=== PATIENT | female | born 1985 | race Caucasian/White ===

== ENCOUNTER 2021-03-24 14:52 | Emergency (ER) | payer MEDICAID, SELFPAY ==
[2021-03-24 15:09] VITALS: BP 143/86; PULSE 110; RESP 16; TEMP 37; O2SAT 99; BMI 35.2
--- NOTE | 2021-03-24 17:11 | ED.ANIMALBIT ---
HPI - Animal Bite General Chief Complaint: Animal Bite Stated Complaint: dog bite Time Seen by Provider: 03/24/21 16:53 Source: patient Mode of arrival: ambulatory Limitations: no limitations History of Present Illness HPI narrative: 35-year-old female presents for a dog bite to her left knee and right lateral upper thigh. Patient was arguing with her son, her son got agitated and kicked the cage that the dog was lying in. The dog was alarmed, and came out and was going to bite her son, patient got in between the dog and her son. States that her dog has never bitten anyone else, and that the dog was scared and startled from the cage being kicked. Dog is up-to-date on rabies, got a rabies shot last year, and is due for rabies shot at the end of this month. Patient is not up-to-date on her tetanus. MD complaint: animal bite Onset (ago): hour(s) (1) Animal: dog Description of animal: household pet Mechanism: bite Location - Extremities: left: knee and right: thigh Pain description: dull Severity scale (1-10): 3 Context: provoked Associated symptoms: none Related Data Patient tetanus UTD: No Previous Rx's Medication Instructions Recorded amoxicillin 875 mg-potassium 1 tab PO BID 10 Days #20 tab 03/24/21 clavulanate 125 mg tablet (Augmentin) Allergies Allergy/AdvReac Type Severity Reaction Status Date / Time aspirin [ASPIRIN] Allergy Intermediate ITCHY Unverified 04/26/20 19:21 Review of Systems Review of Systems: Constitutional : No Weight loss, No Fever, No Chills, No Night Sweats,No Fatigue, No Malaise ENT/Mouth : No Hearing loss, No Ear Pain, No Nasal Congestion, NoSinus Pain, No Hoarseness, No sore throat, No Rhinorrhea, NoSwallowing Difficulty Eyes: No Eye Pain, No Swelling, No Redness, No Foreign Body, NoDischarge, No Vision Changes Cardiovascular : No Chest Pain, No SOB, No Dyspnea on Exertion, NoOrthopnea, No Edema, No Palpitations Respiratory : No Cough, No Sputum, No Wheezing, No Smoke Exposure, No Dyspnea Gastrointestinal : No Nausea, No Vomiting, No Diarrhea, NoConstipation, No abdominal Pain, No Hematochezia, No Melena Genitourinary : no irregular bleeding, No Dysuria, No UrinaryFrequency, No Hematuria, No Urinary Incontinence, No Urgency, No FlankPain, No Urinary Flow Changes, No Hesitancy Musculoskeletal : No joint pain, No Myalgias, No Joint Swelling Skin :lacertion to left knee, puncture wound right upper thigh Neuro : No Weakness, No Numbness, No Paresthesias, No Loss ofConsciousness, No Dizziness, No Headache Psych : mild anxiety, tremors in hands, , No Depression, No SI/HI/AH/VH, No Social Issues, Endocrine : No Polyuria, No Polydipsia, No Temperature Intolerance [facility] Past Medical History Medical History (Updated 03/24/21 @ 18:04 by TRUPTI Ambriz) No acute medical problems Surgical History No history of previous surgery Social History Social History Advance Directives: No Advance Directives Information Provided: No Patient : No Physical Exam Vital Signs: Vital Signs: Last Vital Signs Temp 98.6 F 03/24/21 15:09 Pulse 110 H 03/24/21 15:09 Resp 16 03/24/21 15:09 BP 143/86 H 03/24/21 15:09 Pulse Ox 99 03/24/21 15:09 Body Mass Index 35.2 Const: General: cooperative, no acute distress, well developed, alert and awake Nutritional Appearance: well nourished Orientation/consciousness: patient oriented x3 Limitations: no limitations Eyes: Conjunctivae: conjunctivae normal Pupils: Equal, round and reactive pupils present EOM: EOMs intact bilaterally Resp: Effort & Inspection: normal respiratory effort and able to speak in complete sentences Auscultation: clear to auscultation bilaterally, no crackles, no rales, no rhonchi and no wheezes Cardio: Rate: regular rate Rhythm: regular rhythm Heart sounds: S1 normal heart sound present and S2 normal heart sound present Skin: Other: For % there are linear full-thickness laceration to left anterior knee, right puncture wound upper thigh Trauma: laceration left anterior knee and puncture (upper right thigh) Neuro: General: patient oriented x3, tone normal and moves all extremities Cranial nerves: Yes Equal, round and reactive pupils present Extrem: Left lower extremity: knee Psych: Appearance: grossly normal Affect: normal affect Attitude: cooperative Thought process: Normal thought process present Course Course Course Narrative: 35-year-old female who was bitten by her own dog, dog is up-to-date on rabies vaccination. This was a provoked attack. Patient is not up on her tetanus vaccination, and refuses a tetanus vaccination Laceration left knee irrigated copiously with 500 cc normal saline, 2 loose sutures placed. Wound care instructions and infection return precautions given. Patient placed on Augmentin. Procedures Laceration Laceration 1: Site: lower extremity Side (If applicable): left Size (cm): 4 Description: linear Depth: simple, single layer Local Anesthetic: lidocaine 1% Amount of anesthesia used (mL): 6 Pre-repair: wound explored, irrigated extensively and deep structures intact Skin layer closed with: vicryl Size (cm): 4-0 Number of sutures: 2 Technique: simple, interrupted Discharge Plan Discharge Clinical Impression: Laceration Dog bite Qualifiers: Encounter type: initial encounter Qualified Code(s): W54.0XXA - Bitten by dog, initial encounter Patient Disposition: Home, Self-Care Instructions: Animal Bite (ED), Laceration (ED) Additional Instructions: Please take your antibiotics for the next 10 days. Please return to get the 2 stitches out on April 01. Leave the dressing on until tomorrow, then take it off, washed with soap and water, put a nonstick dressing on, and keep covered. Do this for the next 3 or 4 days. Do not apply antibiotic ointment. If redness swelling or warmth develops, please return to be seen. [place] fadia antibi?ticos georgette los pr?ximos 10 d?as. Regrese para sacar los 2 puntos el 23 de tori. Dejar el ap?sito hasta ma?tiara, luego quitarlo, adriana con agua y jab?n, poner un ap?sito antiadherente y mantener tapado. [place] esto georgette los pr?ximos 3 o 4 d?as. No aplique estela?ento antibi?wse. Si aparece enrojecimiento, hinchaz?n o calor, vuelva a ser visto. Prescriptions: New amoxicillin-pot clavulanate [Augmentin] 875-125 mg tablet 1 tab PO BID 10 Days Qty: 20 RF: 0 Print Language: Bruneian
[2021-03-24] MEDS: Lidocaine HCl 1 % 20 ML VIAL 10 ML INFILTRATI (17:20)
[2021-03-24] MEDS: Amoxicillin/Potassium Clav 875 MG TABLET PO (17:25)
--- NOTE | 2021-03-24 18:46 | PC.NURSE ---
ERICKA LEFT THIGH WOUND CLEANED AND FLUSHED AND SUTURES APPLIED BY TRUPTI TYLER RIGHT THIGH FLUSHED AND CLEANED AND DSD APPLIED.
== END 2021-03-24 18:50 | disposition home or self-care (01) ==
PROVIDERS: Emergency Provider Emergency Medicine
DX: S71.112A Laceration without foreign body, left thigh, initial encounter (principal); S80.272A Other superficial bite of left knee, initial encounter; S70.371A Other superficial bite of right thigh, initial encounter; W54.0XXA Bitten by dog, initial encounter; Y93.9 Activity, unspecified; Y92.009 Unspecified place in unspecified non-institutional (private) residence as the place of occurrence of the external cause; Y99.9 Unspecified external cause status
CPT/HCPCS: 12002; 90471; 99284

== ENCOUNTER 2021-04-01 17:18 | Emergency (ER) | payer MEDICAID, SELFPAY | END 2021-04-01 18:09 | disposition left against medical advice (07) | PROVIDERS: Emergency Provider Emergency Medicine | DX: Z03.89 Encounter for observation for other suspected diseases and conditions ruled out (principal) ==

== ENCOUNTER 2021-04-02 09:11 | Emergency (ER) | payer MEDICAID, SELFPAY ==
--- NOTE | 2021-04-02 10:16 | ED.WOUNDLAC ---
HPI - Wound/Laceration General Stated Complaint: suture removal Time Seen by Provider: 04/02/21 10:15 History of Present Illness HPI narrative: Patient presents for suture removal from left knee, she has no other complaint no redness no swelling no discharge Related Data Previous Rx's Medication Instructions Recorded amoxicillin 875 mg-potassium 1 tab PO BID 10 Days #20 tab 03/24/21 clavulanate 125 mg tablet (Augmentin) Allergies Allergy/AdvReac Type Severity Reaction Status Date / Time aspirin [ASPIRIN] Allergy Intermediate ITCHY Unverified 04/26/20 19:21 Review of Systems Review of Systems: No fever no chills no joint pain no redness swelling or discharge no red stripe up the leg no numbness weakness or tingling Yes all other systems are reviewed and are negative PMFSH Past Medical History Source: nursing notes reviewed Medical History (Updated 04/02/21 @ 10:21 by TRUPTI Gonzalez) No acute medical problems Surgical History No history of previous surgery Social History Social History Patient : No Physical Exam Vital Signs: General appearance is no acute distress Head is normocephalic atraumatic Neck is supple Respiratory no distress The left knee has [address] over the left knee the knee has full range of motion, there is no surrounding erythema no swelling no discharge and neurovascular intact distal Course Course Course Narrative: Left knee sutures are removed, there is no wound dehiscence no discharge from the wound no signs of infection and patient is discharged Discharge Plan Discharge Clinical Impression: Visit for suture removal Patient Disposition: Home, Self-Care Instructions: Stitches Removal (ED) Prescriptions: No Action amoxicillin-pot clavulanate [Augmentin] 875-125 mg tablet 1 tab PO BID 10 Days Qty: 20 RF: 0
[2021-04-02 10:18] VITALS: BP 140/85; PULSE 94; RESP 16; O2SAT 99; BMI 27.4
== END 2021-04-02 10:51 | disposition home or self-care (01) ==
LOC: HO.ED 10:27
PROVIDERS: Emergency Provider Emergency Medicine
DX: Z48.02 Encounter for removal of sutures (principal); S81.012D Laceration without foreign body, left knee, subsequent encounter; X58.XXXD Exposure to other specified factors, subsequent encounter
CPT/HCPCS: 99283

== ENCOUNTER 2025-06-30 21:14 | Emergency (ER) | payer MEDICAID, SELFPAY ==
[2025-06-30 21:15] VITALS: BP 167/76; PULSE 98; RESP 18; TEMP 36.8; O2SAT 99; BMI 37.3
--- NOTE | 2025-06-30 21:56 | ED_ITS ---
HPI - URI/Sore Throat General Chief Complaint: Upper Respiratory Symptoms Stated Complaint: sob Time Seen by Provider: 06/30/25 21:48 Source: patient Mode of arrival: ambulatory Limitations: no limitations History of Present Illness ED Provider: Dr. Lauryn Jeong HPI Narrative: Patient comes to the emergency room complaining of cough for 1 day. Patient states that she took cold and flu medication but she vomited x1. Patient denies fever chills, denies ear pain or sore throat. Related Data Previous Rx's ?Medication ?Instructions ?Recorded amoxicillin 875 mg-potassium 1 tab PO BID 10 days #20 tabs 03/24/21 clavulanate 125 mg tablet (Augmentin) benzonatate 100 mg capsule 100 mg PO TID PRN cough #14 caps 06/30/25 ondansetron 4 mg disintegrating 4 mg PO Q6H PRN nausea and 06/30/25 tablet vomiting #7 tabs Allergies Allergy/AdvReac Type Severity Reaction Status Date / Time aspirin (ASPIRIN) Allergy Intermediate ITCHY Verified 06/30/25 21:22 Review of Systems Review of Systems: Constitutional : No Weight loss, No Fever, No Chills, No Night Sweats, No Fatigue, No Malaise ENT/Mouth : No Hearing loss, No Ear Pain, denies Sinus Pain, No Hoarseness, No sore throat, complaining of rhinorrhea and nasal congestion for 1 day, No Swallowing Difficulty Eyes: No Eye Pain, No Swelling, No Redness, No Foreign Body, No Discharge, No Vision Changes Cardiovascular : No Chest Pain, No SOB, No Dyspnea on Exertion, No Orthopnea, No Edema, No Palpitations Respiratory : No Cough, No Sputum, No Wheezing, No Smoke Exposure, No Dyspnea Gastrointestinal : No Nausea, No Vomiting, No Diarrhea, No Constipation, No abdominal Pain, No Hematochezia, No Melena Genitourinary : no irregular bleeding, No Dysuria, No Urinary Frequency, No Hematuria, No Urinary Incontinence, No Urgency, No Flank Pain, No Urinary Flow Changes, No Hesitancy Musculoskeletal : No joint pain, No Myalgias, No Joint Swelling Skin : No Skin Lesions, No rash Neuro : No Weakness, No Numbness, No Paresthesias, No Loss of Consciousness, No Dizziness, No Headache Psych : No Anxiety/Panic, No Depression, No SI/HI/AH/VH, No Social Issues, Heme/Lymph: No Bruising, No Bleeding,No Lymphadenopathy Endocrine : No Polyuria, No Polydipsia, No Temperature Intolerance [facility] Past Medical History Medical History No acute medical problems Surgical History No history of previous surgery Social History Social History Advance Directives: No Advance Directives Information Provided: Yes Do you have a plan to hurt others: No Plan Patient : No Physical Exam Exam: Exam: Appearance: Alert. Oriented X3. No acute distress. Eyes: Pupils equal, round and reactive to light. ENT: Pharynx normal. Normal tone, no exudates, no visualized abscesses, uvula midline, patient does have nasal congestion Neck: Normal inspection. Neck supple. No lymph nodes noted. No crepitus CVS: Normal heart rate and rhythm. Pulses normal. Normal S1 and S2 Respiratory: No respiratory distress. Breath sounds normal. No Wheezing. No rales Abdomen: Soft and nontender. No rigidity. No distention. Skin: Skin warm and dry. Normal skin color. Normal skin turgor. Extremities: No lower extremity edema. No Lacerations. No Rash Neuro: Oriented X 3. No motor deficit. No sensory deficit. Moving all extremities. No slurred speech. CN 2 through 12 grossly intact Psych: calm, cooperative, normal affect Vital Signs: Vital Signs: Last Vital Signs Temp 98.2 F 06/30/25 21:15 Pulse 98 06/30/25 21:15 Resp 18 06/30/25 21:15 BP 167/76 H 06/30/25 21:15 Pulse Ox 99 06/30/25 21:15 O2 Del Method Room Air 06/30/25 21:15 BMI result Body Mass Index 37.3 Medications Administered Discontinued Medications Generic Name Dose Route Start Last Admin Trade Name Freq PRN Reason Stop Dose Admin Benzonatate 100 mg 06/30/25 21:55 06/30/25 22:02 Benzonatate 100 Mg Capsule PO 06/30/25 21:56 100 mg ONCE ONE Administration Ondansetron HCl 4 mg 06/30/25 21:55 06/30/25 22:02 Ondansetron Odt 4 Mg Tab.Rapdis TRANSLINGU 06/30/25 21:56 4 mg ONCE ONE Administration Medical Decision Making Medical Decision Making [facility] Narrative: Patient has been having URI symptoms for 1 day. Patient requesting a cough medication that does not make her feel sleepy Serology results negative for influenza RSV and COVID Lab Data Labs: Lab Results 06/30/25 Range/Units 21:30 Influenza Type A (PCR) NEGATIVE (Negative) Influenza Type B (PCR) NEGATIVE (Negative) RSV RNA Qual (PCR) NEGATIVE (Negative) SARS-CoV-2 RNA (RT-PCR) NEGATIVE (Negative) Discharge Plan Discharge Clinical Impression: Upper respiratory infection Patient Disposition: Home, Self-Care Instructions: Upper Respiratory Infection (ED) Additional Instructions: Your serology tests results are negative for influenza a, influenza B, RSV and COVID. Please follow-up with your primary care physician tomorrow. If you have any worsening or new symptoms, please return to the emergency room or call 911 Prescriptions: New benzonatate 100 mg capsule 100 mg PO TID PRN (Reason: cough) Qty: 14 0RF ondansetron 4 mg tablet,disintegrating 4 mg PO Q6H PRN (Reason: nausea and vomiting) Qty: 7 0RF No Action amoxicillin-pot clavulanate [Augmentin] 875-125 mg tablet 1 tab PO BID 10 Days Qty: 20 0RF Stand Alone Forms: Work/School Release Print Language: Tristanian
--- OUTSIDE RECORDS SUMMARY | 2025-06-30 22:09 | XMS_ITS | Encounter Summary ---
Author Organization [employer] Address [address] [facility] [address] [place] [address] Care Team Providers Care Reel Tender Name Role Phone Unavailable Primary Care Provider Unavailabl e Reason for Visit * Reason Onset Date Comments medication 08/31/2023 Encounter Details Date Type Department Care Team (Late st Contact Info) Description 08/31/2023 Telephone [facility] ADULT D[facility] [address] [place] [address] Nohemi López DDS [address] [place] [address] medication Social History Tobacco Use Types Packs/Day Years Used Date Smoking Tobacco: Never Smokeless Tobacco: Never Alcohol Use Standard Drinks/Week Comments Not Currently 0 (1 standard drink = 0.6 oz pur e alcohol) Comments Unknown Sex and Gender Information Value Date Recorded Sex Assigned at Female 07/20/2023 1:13 PM EST Legal Sex Female 11:48 AM EST Gender Identity Female 07/20/2023 1:13 PM EST Sexual Orientation Straight 07/20/2023 1: 13 PM EST documented as of this encounter Miscellaneous Notes * Telephone Encounter - Vivek Leonard DMD - 08/31/2023 11:32 AM EST Please follow up with Dr. Andrade. Thanks. Dr. Leonard * Telephone Encounter - Yudith Mujica - 08/31/2023 9:59 AM EST Patient stated that medication was supposed to be sent to pharmacy and nothing there yet. She reminded that she is allergic to aspirin. Can medication be sent DR documented in this encounter Plan of Treatment Not on file documented as of this encounter Visit Diagnoses Not on filedocumented in this encounter
--- OUTSIDE RECORDS SUMMARY | 2025-06-30 22:09 | XMS_ITS | Clinical Summary ---
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 Role Phone Unavailable Primary Care Provider Unavailabl e Allergies Active Allergy Reactions Criticality Noted Date Comments Aspirin 08/26/2023 Medications No known medications Social History Tobacco Use Types Packs/Day Years Used Date Smoking Tobacco: Never Smokeless Tobacco: Never Tobacco Cessation:Counseling Given: Not Answered Alcohol Use Standard Drinks/Week Comments Not Currently 0 (1 standard drink = 0.6 oz pur e alcohol) Comments Unknown Sex and Gender Information Value Date Recorded Sex Assigned at Female 07/20/2023 1:13 PM EST Legal Sex Female 11:48 AM EST Gender Identity Female 07/20/2023 1:13 PM EST Sexual Orientation Straight 07/20/2023 1: 13 PM EST Plan of Treatment Health Maintenance Due Date Last Done Comments Dental Prophylaxis 1984 Depression Screening 1984 HIV Screening 1984 SDOH Screening 1984 Disability Screening 1984 Alcohol/Substance Use Screening 1996 Family Planning (PISQ) 1999 HPV Vaccines (1 - 3-dose series) 1999 Hepatitis C Screening 2002 DTaP/Tdap/Td Vaccines (1 - Tdap) 2003 Hepatitis B Vaccines (1 of 3 - 19+ 3-dose series) 2003 Pap Smear 2005 Cervical Cancer Screening 2014 HPV/Cotest 2014 Dental Oral Exam 02/25/2024 08/26/2023 Mammogram 2024 Dental X-Ray: Bitewings 08/27/2024 08/26/2023 Tobacco Screening 10/18/2024 10/19/2023 COVID-19 Vaccine ( - 2024-2 6 season) 2025 Influenza Vaccine (#1) 2025 Dental X-Ray: Full Mouth 08/27/2026 08/26/2023 Zoster Vaccines (1 of 2) 2034 RSV Patients and Pa tients Aged 60 years or older (1 - 1-dose 75+ series) 2059 HIB Vaccines Aged Out No longer eligi ble based on patient's age to complete this topic Hepatitis A Vaccines Aged Out No long er eligible based on patient's age to complete this topic IPV Vaccines Aged Out No longer eligi ble based on patient's age to complete this topic Meningococcal B Vaccine Aged Out No l onger eligible based on patient's age to complete this topic Meningococcal Vaccine Aged Out No kevin maribell eligible based on patient's age to complete this topic Pneumococcal Vaccine: Pediat rics (0 to 5 Years) and At-Risk Patients (6 to 49) Years Aged Out No longer eligi ble based on patient's age to complete this topic RSV under 20 months Aged Out No longe r eligible based on patient's age to complete this topic Rotavirus Vaccines Aged Out No longer eligible based on patient's age to complete this topic Procedures Procedure Name Priority Date/Time Associated Diagnosis Comments INTRAORAL - COMPLETE SERIES OF RADIOGRAPHIC IMAGES Routine 08/26/2023 2:00 PM EST Encounter for dental examination Rampant dental caries Dental calculus COMPREHENSIVE ORAL EVALUATION - NEW OR ESTABLISHED PATIENT Routine 08/26/2023 2:00 PM EST Encounter for dental examination Rampant dental caries Dental calculus from Last 3 Months or Most Recently Relevant to Health Maintenance Insurance [facility]AL-[facility] MEDICAID STAND ADULT
[2025-06-30 22:16] LABS: Resp Syncy Virus RNA Qual PCR NEGATIVE (Negative); SARS COV2 PCR INHOUSE NEGATIVE (Negative)
[2025-06-30 22:44] VITALS: BP 128/76; PULSE 82; RESP 17; TEMP 36.8; O2SAT 98
[2025-06-30 23:01] VITALS: BP 128/76; PULSE 82; RESP 17; TEMP 36.8; O2SAT 98
== END 2025-06-30 23:06 | disposition home or self-care (01) ==
PROVIDERS: Emergency Provider Emergency Medicine
DX: J06.9 Acute upper respiratory infection, unspecified (principal); R06.02 Shortness of breath; R05.9 Cough, unspecified; R11.2 Nausea with vomiting, unspecified; Z03.818 Encounter for observation for suspected exposure to other biological agents ruled out; Z79.899 Other long term (current) drug therapy
CPT/HCPCS: 87637; 99284

== ENCOUNTER 2025-07-01 22:37 | Emergency (ER) | payer MEDICAID, SELFPAY ==
--- NOTE | 2025-07-01 | ECG_ITS ---
Test Reason : CHEST PAIN Blood Pressure : */* mmHG Vent. Rate : 97 BPM Atrial Rate : 97 BPM P-R Int : 136 ms QRS Dur : 76 ms QT Int : 352 ms P-R-T Axes : 47 67 57 degrees QTcB Int : 447 ms Normal sinus rhythm Normal ECG No previous ECGs available Referred By: Generic ED Physician Electronically Signed By: ELIZABETH DASH
--- NOTE | ~2025-07-01 | XR_ITS ---
CLINICAL HISTORY: cough 1 view chest x-ray Comparison: None provided Findings: Lungs are well inflated. Heart size and pulmonary vasculature within normal limits. No focal areas of consolidation. No pleural effusion or pneumothorax. IMPRESSION: 1. No acute infiltrate. This document has been electronically signed by: Giovani Olea MD on 07/02/2025 00:25:56
[2025-07-01 22:42] VITALS: BP 135/63; PULSE 88; RESP 18; TEMP 36.6; O2SAT 99
--- NOTE | 2025-07-01 23:00 | MHC.EDTECH ---
Patient did not want to get her blood drawn
--- OUTSIDE RECORDS SUMMARY | 2025-07-01 23:08 | XMS_ITS | Encounter Summary ---
Author Organization [employer] Address [address] [facility] [address] [place] [address] Care Team Providers Care Commercial Portfolio Manager Name Role Phone Unavailable Primary Care Provider Unavailabl e Reason for Visit * Reason Onset Date Comments medication 08/31/2023 Encounter Details Date Type Department Care Team (Late st Contact Info) Description 08/31/2023 Telephone [facility] ADULT D[facility]AL [address] [place] [address] Nohemi López DDS [address] [place] [address] medication Social History Tobacco Use Types Packs/Day [...]
--- OUTSIDE RECORDS SUMMARY | 2025-07-01 23:08 | XMS_ITS | Clinical Summary ---
Author Organization [employer] Address [address] [facility] [address] [place] [address] Care Team Providers Care Juice Bar Team Member Name Role Phone Unavailable Primary Care Provider [...] Most Recently Relevant to Health Maintenance Insurance DENTAL-[facility] MEDICAID STAND ADULT
[2025-07-02 02:03] LABS: MANUAL DIFF FLAG NO
[2025-07-02 02:04] LABS: Hematocrit 33.0 % (37.0-47.0); Hemoglobin 10.3 g/dl (12.0-16.0); Imm Gran Abs Auto 0.03 X10*3/uL (0.00-0.03); Imm Gran Pct Auto 0.3 % (0.0-0.4); Lymphocytes Absolute Auto 1.3 X10*3/uL (1.2-4.9); Mean Corpuscular HGB Conc 31.2 g/dl (31.0-35.0); Mean Corpuscular Hemoglobin 23.7 pg (27.0-33.0); Mean Corpuscular Volume 76.0 fL (80.0-98.0); NRBC Abs Auto 0.000 X10*3/uL (0.0-0.012); NRBC Pct Auto 0.0 /100WBC (0.0-0.2); Platelet Count 247 X10*3/uL (160-400); Red Blood Count 4.34 X10*6/uL (4.20-5.50); White Blood Count 11.7 X10*3/uL (4.8-10.8)
[2025-07-02 02:09] VITALS: O2SAT 98
--- NOTE | 2025-07-02 02:12 | PC.NURSE ---
blood work drawn, awaiting results
[2025-07-02 02:17] LABS: Alanine Aminotransferase 21 U/L (0-31); Albumin Level 3.8 g/dL (3.5-5.0); Alkaline Phosphatase 67 U/L (39-117); Anion Gap 13 (12-20); Aspartate Amino Transferase 26 U/L (5-31); Blood Urea Nitrogen 13 mg/dL (9-16); Calcium 8.9 mg/dL (8.4-10.2); Carbon Dioxide 23 mmol/L (22-29); Chloride 108 mmol/L (96-108); Creatinine Clr Calc Pharmacy 91.9; Estimated Glomerular Filt Rate > 60; Potassium 4.1 mmol/L (3.3-5.1); Sodium 140 mmol/L (135-145); Total Protein 6.8 g/dL (6.5-8.0)
--- NOTE | 2025-07-02 02:19 | ED_ITS ---
HPI - URI/Sore Throat General Chief Complaint: Upper Respiratory Symptoms Stated Complaint: CP Time Seen by Provider: 07/02/25 01:20 Source: patient, RN notes reviewed and old records reviewed Mode of arrival: ambulatory Limitations: language barrier History of Present Illness ED Provider: Dr. Trudy Will HPI Narrative: 40-year-old female who returns to the ED for recurrent cough and chest tightness that began several days ago. She was evaluated in this ED yesterday and reports that the medications given at that time provided good relief overnight. This morning she awoke with renewed chest tightness and an inability to burp. She also notes an unpleasant taste when eating and taking medicine together. She denies vomiting but felt nauseated. Last night she took an OTC Theraflu dose in addition to the ED-prescribed medications. She recalls a preceding ?cold? prior to the current illness. Symptoms (cough and shortness of breath) are worse indoors at her warm home and improve when she goes outside. She slept well last night, has not measured a fever, and denies any new outdoor exposures since yesterday. No other current medications. 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 No prior history of asthma or COPD. Related Data Previous Rx's ?Medication ?Instructions ?Recorded amoxicillin 875 mg-potassium 1 tab PO BID 10 days #20 tabs 03/24/21 clavulanate 125 mg tablet (Augmentin) benzonatate 100 mg capsule 100 mg PO TID PRN cough #14 caps 06/30/25 ondansetron 4 mg disintegrating 4 mg PO Q6H PRN nausea and 06/30/25 tablet vomiting #7 tabs omeprazole 20 mg capsule,delayed 20 mg PO DAILY #30 ca ps 07/02/25 release Allergies Allergy/AdvReac Type Severity Reaction Status Date / Time aspirin (ASPIRIN) Allergy Intermediate ITCHY Verified 07/01/25 22:43 Review of Systems 2 Review of Systems: as per HPI, full review of systems performed and negative but for the above mentioned pertinent positives and negatives. [facility] Past Medical History Medical History No acute medical problems Surgical History No history of previous surgery Physical Exam 2 Exam: Exam: GENERAL: Ill-Appearing, appears uncomfortable. SKIN: Normal skin color for ethnicity, warm, dry, no rashes noted. HEENT:? Normocephalic, atraumatic, no stridor, dry mucous membranes, dentition intact, EOMI. NECK: Soft, supple, full ROM, midline structures nontender, no step-offs, no deformities, no lymphadenopathy. CHEST: Heart regular rhythm, no murmurs, symmetric chest rise and fall. PULMONARY: Clear to auscultation bilaterally, diminished at the bases, no labored breathing, no wheezes/rhales/rhonchi. ABDOMINAL: Soft, nondistended, nontender, positive bowel sounds in all quadrants. : Deferred. MUSCULOSKELETAL: Normal tone, full range of motion, no deformities, no peripheral edema. NEURO: Alert and oriented x3, CN II through XII intact, equal strength and sensation bilateral upper and lower extremities, no focal neurologic deficits.? PSYCHIATRIC: Flat affect, fluid speech, good eye contact and appropriate demeanor. Vital Signs: Vital Signs: Last Vital Signs Temp 98.3 F 07/02/25 03:12 Pulse 84 07/02/25 03:12 Resp 20 07/02/25 03:12 BP 130/80 07/02/25 03:12 Pulse Ox 96 07/02/25 03:12 O2 Del Method Room Air 07/02/25 03:12 BMI result Body Mass Index 30.0 Medications Administered Discontinued Medications Generic Name Dose Route Start Last Admin Trade Name Freq PRN Reason Stop Dose Admin Al Hydroxide/Mg Hydroxide 30 ml 07/02/25 02:20 07/02/25 02:27 Magnesium Hydrox/Alum Hydrox 30 Ml Oral.Susp PO 07/02/25 02:21 30 ml ONCE ONE Administration Medical Decision Making Medical Decision Making MDM Narrative: 40-year-old female with recurrent cough and chest tightness likely related to viral upper respiratory infection with possible gastroesophageal reflux contributing to nocturnal cough. Problem #1: Upper respiratory infection Assessment: Viral URI; COVID-19 and influenza ruled out yesterday; chest X-ray clear. Plan: * Continue symptomatic therapy as provided yesterday. * Return precautions: worsening breathing, development of fever, or other concerning symptoms. * Follow-up: ED return as needed. Problem #2: Suspected gastroesophageal reflux contributing to cough Assessment: Chest tightness and cough worse when lying flat; unpleasant taste after meals/medication; responds to positional changes ? consistent with reflux. Plan: * Administer first dose of reflux medication in ED today, then continue daily for two weeks. * Return if symptoms worsen or do not improve with therapy. Differential Diagnosis Differential Diagnoses: The differential diagnosis associated with the presentation includes (As above) Admission/Observation Consideration of admission/observation: Escalation of care including admission/observation considered Lab Data MDM Lab Attestation statement: I reviewed the patient's lab results. 07/02/25 01:58 07/02/25 01:58 Labs: Lab Results 07/02/25 Range/Units 01:58 WBC 11.7 H (4.8-10.8) X10*3/uL RBC 4.34 (4.20-5.50) X10*6/uL Hgb 10.3 L (12.0-16.0) g/dl Hct 33.0 L (37.0-47.0) % MCV 76.0 L (80.0-98.0) fL MCH 23.7 L (27.0-33.0) pg MCHC 31.2 (31.0-35.0) g/dl RDW 15.3 (11.0-16.0) % Plt Count 247 (160-400) X10*3/uL MPV 10.2 (9.4-12.3) fL Immature Gran % (Auto) 0.3 (0.0-0.4) % Neut % (Auto) 78.3 H (45-73) % Lymph % (Auto) 10.9 L (20-40) % [place] % (Auto) 5.1 (2-11) % Eos % (Auto) 5.1 H (0-4) % Baso % (Auto) 0.3 (0-2) % Lymph # (Auto) 1.3 (1.2-4.9) X10*3/uL [place] # (Auto) 0.6 (0.1-1.2) X10*3/uL Eos # (Auto) 0.6 H (0.0-0.4) X10*3/uL Baso # (Auto) 0.0 (0.0-0.2) X10*3/uL Abs Immat Gran (auto) 0.03 (0.00-0.03) X10*3/uL Absolute Neuts (auto) 9.2 H (2.0-8.3) x10*3/uL Absolute Nucleated RBC 0.000 (0.0-0.012) X10*3/uL Nucleated RBC % (auto) 0.0 (0.0-0.2) /100WBC Sodium 140 (135-145) mmol/L Potassium 4.1 (3.3-5.1) mmol/L Chloride 108 (96-108) mmol/L Carbon Dioxide 23 (22-29) mmol/L Anion Gap 13 (12-20) BUN 13 (9-16) mg/dL Creatinine 0.85 (0.5-1.4) mg/dL Estim Creat Clear Calc 91.9 Estimated GFR > 60 Random Glucose 113 (60-115) mg/dL Calcium 8.9 (8.4-10.2) mg/dL Total Bilirubin 0.1 (0.0-1.0) mg/dL AST 26 (5-31) U/L ALT 21 (0-31) U/L Alkaline Phosphatase 67 (39-117) U/L Troponin I High Sens < 2.7 (<3.5-17.0) ng/L Total Protein 6.8 (6.5-8.0) g/dL Albumin 3.8 (3.5-5.0) g/dL Independent Interpretation I performed an independent interpretation of an: EKG and Plain X-Ray Interpretation: My independent interpretation of the ECG reveals normal sinus rhythm with rate of 97, normal axis, normal intervals, no ST elevations or depressions to suggest ischemic changes, no previous for comparison My independent interpretation of the chest x-ray reveals no consolidations, pulmonary edema, pleural effusion, pneumothorax, obvious bony abnormalities. Radiology Impression Discussion of test interpretation with radiology: I have reviewed the radiologist's reading. External Record Review External record reviewed: Inpatient record Prescription Management I considered prescription management with: Other (Antacids) Social Determinants Patient?s care significantly limited by Social Determinants of Health including: Other Social Determinant of Health Discharge Plan Discharge Clinical Impression: Chest pain due to GERD, Cough Patient Disposition: Home, Self-Care Instructions: GERD (Gastroesophageal Reflux Disease) (ED) Additional Instructions: Take omeprazole for the next 30 days, every day. Return to the ER with any new or worsening symptoms including: Worsening cough, fevers greater than 100?, difficulty breathing, any new symptom that concerns you. Call 911 with any medical emergency. Prescriptions: New omeprazole 20 mg capsule,delayed release(DR/EC) 20 mg PO DAILY Qty: 30 0RF No Action amoxicillin-pot clavulanate [Augmentin] 875-125 mg tablet 1 tab PO BID 10 Days Qty: 20 0RF benzonatate 100 mg capsule 100 mg PO TID PRN (Reason: cough) Qty: 14 0RF ondansetron 4 mg tablet,disintegrating 4 mg PO Q6H PRN (Reason: nausea and vomiting) Qty: 7 0RF Interventions: ED Discharge Assessment Last Done: 07/02/25 03:12 Discharge Date/Time: 07/02/25 03:14 Print Language: Ukrainian
[2025-07-02 02:25] LABS: Troponin-I High Sensitivity < 2.7 ng/L (<3.5-17.0)
[2025-07-02] MEDS: Magnesium Hydrox/Alum Hydrox 30 ML ORAL.SUSP PO (02:27)
--- NOTE | 2025-07-02 02:29 | PC.NURSE ---
medicated per mar.
[2025-07-02 02:33] VITALS: BP 130/80; PULSE 84; RESP 20; TEMP 36.8; O2SAT 96
--- NOTE | 2025-07-02 03:10 | PC.NURSE ---
reviewed discharge instructions with pt. pt verbalized understanding, no sign of distress upon discharge, pt had a steady gait.
[2025-07-02 03:12] VITALS: BP 130/80; PULSE 84; RESP 20; TEMP 36.8; O2SAT 96
== END 2025-07-02 03:14 | disposition home or self-care (01) ==
PROVIDERS: Emergency Provider Emergency Medicine
DX: K21.9 Gastro-esophageal reflux disease without esophagitis (principal); R05.9 Cough, unspecified
CPT/HCPCS: 36415; 71045; 80053; 84484; 85025; 93005; 99283; 99285

== ENCOUNTER → 2025-07-01 22:42 | Outpatient (BNV) | payer MEDICAID, SELFPAY | PROVIDERS: Emergency Provider Emergency Medicine; Visit Provider Internal Medicine | DX: R07.9 Chest pain, unspecified (principal) | CPT/HCPCS: 93010 ==

== ENCOUNTER → 2025-07-01 23:50 | Outpatient (BNV) | payer MEDICAID, SELFPAY | PROVIDERS: Visit Provider Radiology Diagnostic Radiology | DX: R05.9 Cough, unspecified (principal) | CPT/HCPCS: 71045 ==

== ENCOUNTER 2025-07-11 03:22 | Emergency (ER) | payer MEDICAID, SELFPAY ==
[2025-07-11 03:31] VITALS: BP 127/78; PULSE 98; RESP 18; TEMP 36.7; O2SAT 95; BMI 31.6
--- OUTSIDE RECORDS SUMMARY | 2025-07-11 04:25 | XMS_ITS | Encounter Summary ---
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
--- OUTSIDE RECORDS SUMMARY | 2025-07-11 04:25 | XMS_ITS | Clinical Summary ---
Author Organization [employer] Address [address] [place] [address] 7 [place] [address] Care Team Providers Care Event Specialist Food Demonstrator Name Role Phone Unavailable Primary Care Provider Unavailabl e Allergies Active Allergy Reactions Criticality Noted Date Comments Aspirin 08/26/2023 Medications No known medications Encounters Date Type Department Care Team Description 07/04/2025 Results Follow-Up [facility] [address] [place] [address] Provider, Generic External Data XR Chest 1 View 06/30/2025 Orders Only GENERIC EXTERNAL DATA DEPARTMENT Provider, Generic External Data from Last 3 Months Social History Tobacco Use Types Packs/Day Years [...] 08/26/2023 Tobacco Screening 10/18/2024 10/19/2023 COVID-19 Vaccine (1 - 2024-2 6 season) 2025 Influenza Vaccine [...] Procedure Name Priority Date/Time Associated Diagnosis Comments HIGH SENSITIVITY TROPONIN I Routine 07/02/2025 1:58 AM EST COMPREHENSIVE METABOLIC PANEL Routine 07/02/2025 1:58 AM EST CBC WITH AUTO DIFFERENTIAL Routine 07/02/2025 1:58 AM EST XR CHEST 1 VIEW Routine 07/02/2025 12:25 AM EST SARS COV2/INFLUENZA A/B AND RSV RNA QL NAAT Routine 06/30/2025 9:30 PM EST INTRAORAL - COMPLETE SERIES OF RADIOGRAPHIC IMAGES Routine 08/26/2023 2:00 PM EST Encounter for dental examination Rampant dental caries Dental calculus COMPREHENSIVE ORAL EVALUATION - NEW OR ESTABLISHED PATIENT Routine 08/26/2023 2:00 PM EST Encounter for dental examination Rampant dental caries Dental calculus from Last 3 Months or Most Recently Relevant to Health Maintenance Results * High Sensitivity Troponin I (07/02/2025 1:58 AM EST) [facility] TROPONIN I HIGH SENSITIVITY <2.7 <3.5 - 17.0 ng/L [facility] Comment:The [place] high sens itivity Troponin-I results should beused in conjunction with other diagnostic information suchas ECG, clinical observations and information, and patientsymptoms to aid in the diagnosis of NV. 07/02/2025 1:58 AM EST 07/02/2025 2:02 AM EST Narrative [facility] - 07/02/2025 2:25 AM EST Patient refused us Generic External Data Provider LAB BLOOD ORDERAB LES Final Result Performing Organization Address City/State/[facility] Co de Phone Number [facility] [address] [place] [phone] * (ABNORMAL) CBC auto differential (07/02/2025 1:58 AM EST) [facility] White Blood Count 11.7(H) 4.8 - 10.8 X10*3/uL [facility] Red Blood Count 4.34 4.20 - 5.50 X10*6/uL [facility] Hemoglobin 10.3(L) 12.0 - 16.0 g/dl [facility] Hematocrit 33.0(L) 37.0 - 47.0 % [facility] Mean Corpuscular Volume 76.0(L) 80.0 - 98.0 fL [facility] Mean Corpuscular Hemoglobin 23.7(L) 27.0 - 33.0 pg [facility] Mean Corpuscular HGB Conc 31.2 31.0 - 35.0 g/dl [facility] Red Cell Distribution Width 15.3 11.0 - 16.0 % [facility] Platelet Count 247 160 - 400 X10*3/uL [facility] Mean Platelet Volume 10.2 9.4 - 12.3 fL [facility] Neutrophils Percent Auto 78.3(H) 45 - 73 % [facility] Imm Gran Pct Auto 0.3 0.0 - 0.4 % [facility] Lymphocytes Percent Auto 10.9(L) 20 - 40 % [facility] Monocytes Percent Auto 5.1 2 - 11 % [facility] Eosinophils Percent Auto 5.1(H) 0 - 4 % [facility] Basophils Percent Auto 0.3 0 - 2 % [facility] NRBC Pct Auto 0.0 0.0 - 0.2 /100WBC [facility] Neutrophils Absolute Auto 9.2(H) 2.0 - 8.3 x10*3/uL [facility] Imm Gran Abs Auto 0.03 0.00 - 0.03 X10*3/uL [facility] Lymphocytes Absolute Auto 1.3 1.2 - 4.9 X10*3/uL [facility] Monocytes Absolute Auto 0.6 0.1 - 1.2 X10*3/uL [facility] Eosinophils Absolute Auto 0.6(H) 0.0 - 0.4 X10*3/uL [facility] Basophils Absolute Auto 0.0 0.0 - 0.2 X10*3/uL [facility] NRBC Abs Auto 0.000 0.0 - 0.012 X10*3/uL [facility] 07/02/2025 1:58 AM EST 07/02/2025 2:02 AM EST Narrative [facility] - 07/02/2025 2:05 AM EST Patient refused us Generic External Data Provider LAB BLOOD ORDERAB LES Final Result [facility] [address] [place] [phone] * Comprehensive Metabolic Panel (07/02/2025 1:58 AM EST) Sodium 140 135 - 145 mmol/L [facility] Potassium 4.1 3.3 - 5.1 mmol/L [facility] Chloride 108 96 - 108 mmol/L [facility] Carbon Dioxide 23 22 - 29 mmol/L [facility] Anion Gap 13 12 - 20 [facility] Urea Nitrogen (BUN) 13 9 - 16 mg/dL [facility] Creatinine, Serum 0.85 0.5 - 1.4 mg/dL [facility] Creatinine Clr Calc Pharmacy 91.9 [facility] Comment:Provided height and weight: 165.1 cm,81.647 kg.eGFR (calculated from the MDRD study equation) and eCrCl(calculated from the Cockcroft-Gault equation) are based ondifferent parameters and may not yield comparable results.If eCrCl result is absurd, please check patient'sheight/weight. Estimated Glomerular Filt Rate >60 [facility] Comment:Chronic Kidney Disea se: Estimated GFR < 60 mL/min/1.56n8Cpebsw Kidney Disease: Estimated GFR < 15 mL/min/1.73m2 Glucose 113 60 - 115 mg/dL [facility] Calcium 8.9 8.4 - 10.2 mg/dL [facility] Bilirubin, Total 0.1 0.0 - 1.0 mg/dL [facility] Aspartate Amino Transferase 26 5 - 31 U/L [facility] Alanine Aminotransferase 21 0 - 31 U/L [facility] Total Protein 6.8 6.5 - 8.0 g/dL [facility] Albumin Level 3.8 3.5 - 5.0 g/dL [facility] Alkaline Phosphatase 67 39 - 117 U/L [facility] 07/02/2025 1:58 AM EST 07/02/2025 2:02 AM EST Narrative [facility] - 07/02/2025 2:17 AM EST Patient refused us Generic External Data Provider LAB BLOOD ORDERAB LES Final Result [facility] [address] [place] [phone] * XR Chest 1 View (07/02/2025 12:25 AM EST) Anatomical Region Laterality Modality Chest Radiographic Ana ging 07/02/2025 12:2 5 AM EST Narrative 07/02/2025 12:26 AM EST [address] [address] XRay Report Signed Patient: Taylor Kuo X MR#: [id number] : 1985 Acct:[id number] Age/Sex: 40 / F ADM Date: 07/01/25 Loc: HO.ED Attending Dr: Ordering Physician: Generic ED Physician Date of Service: 07/01/25 Procedure(s): XR chest 1V Accession Number(s): [id number] cc: Generic ED Physician; [facility] Reason for Exam: cough CLINICAL HISTORY: cough 1 view chest x-ray Comparison: None provided Findings: Lungs are well inflated. Heart size and pulmonary vasculature within normal limits. No focal areas of consolidation. No pleural effusion or pneumothorax. IMPRESSION: 1. No acute infiltrate. This document has been electronically signed by: Giovani Olea MD on 07/02/2025 00:25:56 Dictated By: Giovani Olea MD Signed By: <Electronically signed by Giovani Olea MD in OV> 07/02/2525 DD/ TD/TT: 07/02/2524 Coal Shoveler: Procedure Note Donotuseinterpreter, Image - 07/03/[address] [address] XRay Report Signed Patient: Taylor Kuo XMR#: [id number] : 1985Acct:[id number] Age/Sex: 40 / FADM Date: 07/01/25 Loc: .ED Attending Dr: Ordering Physician: Generic ED Physician Date of Service: 07/01/25 Procedure(s): XR chest 1V Accession Number(s): [id number] cc: Generic ED Physician; [facility] Reason for Exam: cough CLINICAL HISTORY: cough 1 view chest x-ray Comparison: None provided Findings: Lungs are well inflated. Heart size and pulmonary vasculature within normal limits. No focal areas of consolidation. No pleural effusion or pneumothorax. IMPRESSION: 1. No acute infiltrate. This document has been electronically signed by: Giovani Olea MD on 07/02/2025 00:25:56 Dictated By: Giovani Olea MD Signed By: <Electronically signed by Giovani Olea MD in OV> 07/02/2525 DD/ TD/TT: 07/02/2524 Coal Shoveler: [facility] External Provider IMG XR PROCEDURES Final Result * SARS-CoV-2 RNA, Influenza A/B, and RSV RNA, Ql NAAT (06/30/2025 9:30 PM EST) Influenza A PCR NEGATIVE Negative [facility] Influenza B PCR NEGATIVE Negative [facility] Resp Syncy Virus RNA Qual PCR NEGATIVE Negative [facility] SARS COV2 PCR NEGATIVE Negative [facility] Comment:All test results mus t be correlated with clinical findings.Negative results do not preclude SARS-CoV2, influenza Avirus, influenza B virus and/or RSV infectionand should not be used as the sole basis for treatment orother patient management decisions. Negative results must becombined with clinical observations, patient history, andepidemiological information.This test has not been evaluated for monitoring treatment ofinfection.This test has been authorized by the FDA under an EmergencyUse Authorization (EUA) for use by authorized laboratories.Testing performed on the [employer] GeneXpert utilizingreal-time RT-PCR.All SARS CoV2 and positive influenza A/B results arereported to [facility]. 06/30/2025 9:30 PM EST 06/30/2025 9:35 PM EST Generic External Data Provider LAB MICROBIOLOGY - GENERAL ORDERABLES Final Result [facility] [address] [place] [phone] from Last 3 Months Insurance [facility] MEDICA[facility] STAND ADULT
--- OUTSIDE RECORDS SUMMARY | 2025-07-11 04:25 | XMS_ITS | Encounter Summary ---
Author Organization [employer] Address [address] [place] [address] [address] [place] [address] Care Team Providers Care Senior Research Engineer Name Role Phone Unavailable Primary Care Provider Unavailabl e Encounter Details Date Type Department Care Team (Late st Contact Info) Description 07/04/2025 Results Follow-Up [facility] Information Management [address] [place] [address] Provider, Generic External Data XR Chest 1 View Social History Tobacco Use Types Packs/Day Years [...] PM EST documented as of this encounter Plan of Treatment Not on file documented as of this encounter Visit Diagnoses Not on filedocumented in this encounter
--- NOTE | 2025-07-11 05:26 | ED.GENADULT ---
HPI - General Adult General Chief complaint: Upper Respiratory Symptoms Stated complaint: coughing Time Seen by Provider: 07/11/25 04:52 Source: patient Limitations: language barrier History of Present Illness ED Provider: Kita Leo PA-C HPI narrative: 40-year-old female presents with cough and cold symptoms for over a week. Patient was seen in the emergency department on June 30, was treated for viral syndrome. Patient states her cough is persisting. She is requesting additional cough suppressant this she was given at her 1st visit. Related Data Previous Rx's ?Medication ?Instructions ?Recorded amoxicillin 875 mg-potassium 1 tab PO BID 10 days #20 tabs 03/24/21 clavulanate 125 mg tablet (Augmentin) benzonatate 100 mg capsule 100 mg PO TID PRN cough #14 caps 06/30/25 ondansetron 4 mg disintegrating 4 mg PO Q6H PRN nausea and 06/30/25 tablet vomiting #7 tabs omeprazole 20 mg capsule,delayed 20 mg PO DAILY #30 caps 07/02/25 release benzonatate 200 mg capsule 200 mg PO TID PRN cough #15 caps 07/11/25 Allergies Allergy/AdvReac Type Severity Reaction Status Date / Time aspirin (ASPIRIN) Allergy Intermediate ITCHY Verified 07/11/25 03:37 Review of Systems Review of Systems: Yes all other systems are reviewed and are negative Constitutional: Constitutional: Denies chills, Denies fatigue and Denies fever(s) Cardiovascular: Cardiovascular: Denies chest pain and Denies dyspnea Respiratory: Respiratory: Denies chest congestion, Reports cough, Denies dyspnea and Denies wheezing Gastrointestinal: Gastrointestinal: Denies abdominal pain, Denies nausea and Denies vomiting Endocrine: Endocrine: Denies fatigue Allergic/Immunologic: Allergic/Immunologic: Denies wheezing PMF Past Medical History Attestation statement: The following information was validated with the patient. Medical History No acute medical problems Surgical History No history of previous surgery Social History Social History Advance Directives: No Advance Directives Information Provided: Yes Physical Exam ED Vital Signs: Vital Signs - 24 hr 07/11/25 03:31 Temperature 98.1 F Pulse Rate 98 Respiratory Rate 18 Blood Pressure 127/78 Pulse Oximetry 95 Oxygen Delivery Method Room Air BMI result Body Mass Index 31.6 Const Other: Alert Orientation/consciousness: patient oriented x3 Resp Effort & Inspection: normal respiratory effort Cardio Other: Normal peripheral perfusion Skin Other: Warm dry no rash Neuro General: patient oriented x3, gait normal, no focal motor deficits and CN's II-XI intact bilaterally Psych Other: Cooperative Medical Decision Making Medical Decision Making MDM Narrative: 40-year-old female presents with cough and cold symptoms for over a week. Patient was seen in the emergency department on June 30, was treated for viral syndrome. Patient states her cough is persisting. She is requesting additional cough suppressant this she was given at her 1st visit. Problem: Known viral syndrome History: Per patient I have considered the following differential diagnoses: Viral syndrome Plan: Patient having persistent cough, there was no change in her symptoms, she is requesting a refill of the Tessalon Perles. Differential Diagnosis Differential Diagnoses: The differential diagnosis associated with the presentation includes See MDM Admission/Observation Consideration of admission/observation: Escalation of care including admission/observation considered Not applicable Discharge Plan Discharge Clinical Impression: Viral infection Patient Disposition: Home, Self-Care Instructions: Viral Syndrome (ED) Additional Instructions: Take the Benzonate as needed for your cough. Viral illnesses self-limiting, some people we will have symptoms for several weeks, up to 6-8 weeks. Follow up with your primary care provider as needed. Prescriptions: New benzonatate 200 mg capsule 200 mg PO TID PRN (Reason: cough) Qty: 15 0RF No Action amoxicillin-pot clavulanate [Augmentin] 875-125 mg tablet 1 tab PO BID 10 Days Qty: 20 0RF benzonatate 100 mg capsule 100 mg PO TID PRN (Reason: cough) Qty: 14 0RF ondansetron 4 mg tablet,disintegrating 4 mg PO Q6H PRN (Reason: nausea and vomiting) Qty: 7 0RF omeprazole 20 mg capsule,delayed release(DR/EC) 20 mg PO DAILY Qty: 30 0RF Print Language: Swedish
[2025-07-11 05:41] VITALS: BP 127/78; PULSE 98; RESP 18; TEMP 36.7; O2SAT 95
== END 2025-07-11 05:42 | disposition home or self-care (01) ==
PROVIDERS: Emergency Provider Emergency Medicine
DX: B34.9 Viral infection, unspecified (principal); R05.9 Cough, unspecified
CPT/HCPCS: 99282; 99283